=== PATIENT | male | born 1980 | race Caucasian/White ===

== ENCOUNTER 2016-07-10 07:17 | Emergency (ER) | payer BC, OTHER ==
[2016-07-10] MEDS ORDERED: KETOROLAC 30 MG/ML VIAL ONE (08:55)
[2016-07-10] MEDS ORDERED: SODIUM CHLORIDE 0.9% 1,000 ML ONE (08:56)
[2016-07-10] MEDS ORDERED: MORPHINE 4 MG/ML SYR ONE (11:04)
== END 2016-07-10 11:20 | disposition home or self-care (01) ==
LOC: ER 07:17
DX: N13.2 Hydronephrosis with renal and ureteral calculous obstruction (principal)
CPT/HCPCS: 36415; 74176; 80053; 81001; 83690; 85025; 96361; 96374; 96375